=== PATIENT | male | born 1950 | race Caucasian/White ===

== ENCOUNTER → 2018-10-14 | Outpatient (CLI) | payer BC, MEDICARE ==
--- NOTE | 2018-10-14 16:47 | 2DMMODE ---
[place] [address] 2 D/M-MODE ECHOCARDIOGRAM Name: ZEUS CARPENTER Room: [facility]#: [id number] Admission: 10/14/18 Attend Phys: Baldo Bacon Discharge: Date of : 52 Date of Service: 10/14/18 1647 Report #: [id number] THIS REPORT FOR: //name// APPROVED REPORT Study performed: 10/14/2018 08:06:19 EXAM: Comprehensive 2D, Doppler, and color-flow Echocardiogram Patient Location: Out-Patient BSA: 2.24 HR: 65 bpm BP: 128/75 mmHg Other Information Study Quality: Good Indications Murmur 2D Dimensions IVSd: 11.82 (7-11mm) LVOT Diam: 20.51 (18-24mm) LVDd: 56.50 mm PWd: 11.48 (7-11mm) Ascending Ao: 39.22 (22-36mm) LVDs: 35.00 (25-40mm) Aortic Root: 32.94 mm Volumes Left Atrial Volume (Systole) LA ESV Index: 27.30 mL/m2 Aortic Valve AoV Peak Marquez.: 1.14 m/s AO Peak Gr.: 5.22 mmHg LVOT Max P.50 mmHg AO Mean Gr.: 2.68 mmHg LVOT Mean P.86 mmHg LVOT Max V: 1.06 m/s AO V2 VTI: 18.30 cm LVOT Mean V: 0.61 m/s MARILYN (VTI): 3.51 cm2 LVOT V1 VTI: 19.43 cm Mitral Valve E/A Ratio: 2.07 MV Decel. Time: 200.98 ms MV E Max Mraquez.: 1.16 m/s MV PHT: 58.28 ms MVA (PHT): 3.77 [place]2 [place] [address] 2 D/M-MODE ECHOCARDIOGRAM Name: ZEUS CARPENTER Room: [facility]#: [id number] Admission: 10/14/18 Attend Phys: Baldo Bacon Discharge: Date of : 52 Date of Service: 10/14/18 1647 Report #: [id number] TDI E/Lateral E': 8.92 E/Medial E': 10.55 Medial E' Marquez.: 0.11 m/s Lateral E' Marquez.: 0.13 m/s Pulmonary Valve PV Peak Marquez.: 0.83 m/s PV Peak Gr.: 2.76 mmHg Left Ventricle The left ventricle is normal size. There is normal LV segmental wall motion. There is normal left ventricular wall thickness. Left ventricular systolic function is normal. LVEF is 65-70%. The left ventricular diastolic function is normal. Right Ventricle The right ventricle is normal size. The right ventricular systolic function is normal. Atria The left atrium size is normal. The right atrium size is normal. Aortic Valve The aortic valve is normal in structure. No aortic regurgitation is present. There is no aortic valvular stenosis. Mitral Valve There is mild prolapse of the posterior mitral valve leaflet. Leaflets are normal in thickness. At least moderate mitral insufficiency. No evidence of mitral valve stenosis. Tricuspid Valve The tricuspid valve is normal in structure. There is no tricuspid valve regurgitation noted. Pulmonic Valve The pulmonary valve is normal in structure. There is no pulmonic valvular regurgitation. Great Vessels The aortic root is normal in size. IVC is normal in size and collapses >50% with inspiration. Pericardium There is no peric[place] [address] 2 D/M-MODE ECHOCARDIOGRAM Name: ZEUS CARPENTER Room: [facility]#: [id number] Admission: 10/14/18 Attend Phys: Baldo Bacon Discharge: Date of : 52 Date of Service: 10/14/18 1647 Report #: [id number] <Conclusion> The left ventricle is normal size. There is normal left ventricular wall thickness. Left ventricular systolic function is normal. LVEF is 65-70%. The left ventricular diastolic function is normal. There is mild prolapse of the posterior mitral valve leaflet. Leaflets are normal in thickness. At least moderate mitral insufficiency. IVC is normal in size and collapses >50% with inspiration. <ELECTRONICALLY SIGNED> By: Cameron Langford MD, FACC 10/14/18 1647 164 [id number] Cameron Langford MD, FACC /INF
== END ==
LOC: M.CRD 07:38
DX: I35.0 Nonrheumatic aortic (valve) stenosis (principal)

== ENCOUNTER 2020-10-17 11:13 | Emergency (ER) | payer MEDICARE, BC ==
[~2020-10-17] VITALS: Ht 182.9 cm; Wt 99.8 kg
[2020-10-17] MEDS ORDERED: NORCO5 PO (14:17)
[2020-10-17 14:27] VITALS: BP 136/72
== END 2020-10-17 14:27 | disposition home or self-care (01) ==
LOC: M.ERS 11:13
DX: M25.511 Pain in right shoulder (principal); I10 Essential (primary) hypertension; Z88.8 Allergy status to other drugs, medicaments and biological substances